=== PATIENT | male | born 1960 | race Caucasian/White ===

== ENCOUNTER 2019-11-28 00:55 | Outpatient (CLI) | payer MEDICAID, SELFPAY ==
--- NOTE | 2019-11-28 | DI.CT_ITS ---
EXAM: CT CHEST WO CLINICAL HISTORY: LUNG MASS, R91.8,PRE BIOPSY,EVALUATE SIZE AND OR RESOLUTION, TECHNIQUE: Imaging Protocol: Axial computed tomography images with coronal and sagittal reformatted images were created and reviewed CONTRAST MATERIAL: Noncontrast COMPARISON: CT CT CHEST W/CONTRAST from 10/09/2019 FINDINGS: Tracheobronchial tree: Patent where visualized. Mediastinum and Angélica: Small mediastinal lymph nodes Pulmonary parenchyma: There has been significant interval increase in size of the previously noted pl eural based mass in the lingula. It now measures 7.5 transverse by 3.2 cm AP by 3.8 cm cephalocaudad . No definite chest wall invasion is seen. Additional pulmonary nodules are seen at the left lower lo be measuring 5 and 7 millimeters in size which appear unchanged. No infiltrates are seen. There is mi ld underlying emphysematous changes. Pleura: No effusion or pneumothorax. Heart: The heart is not dilated. No coronary artery calcifications are seen. Aorta: Thoracic aorta non-dilated. Upper abdomen: Unremarkable. Bones: Normal. IMPRESSION: Interval increase in size of pleural based mass of the lingula. RADIATION DOSE DELIVERED: 382.56mGy.cm Total DLP DATA REPOSITORY: All CT scans at this facility are submitted to the National Radiology Data Registry (NRDR) Dose Index Registry (DIR) with the [employer] (A[employer]). RADIATION OPTIMIZATION: All CT scans at this facility use at least one of these dose optimization te chniques: automated exposure control; mA and/or kV adjustment per patient size (includes targeted exa ms where dose is matched to clinical indication); or iterative reconstruction.
--- NOTE | 2019-11-28 08:30 | DI.NM_ITS ---
EXAM: [place] BONE SCAN INJECTION ONLY CLINICAL HISTORY: BONE PAIN, M89.8X9, LUNG MASS,CHEST WALL PAIN, EVALUTE FOR METS. TECHNIQUE: Injected Dose: 24.5 mCi Tc-99m MDP Delayed Images: No images were obtained. COMPARISON: CT CT CHEST WO from 11/28/2019 FINDINGS: The patient was a injected with radiopharmaceutical but was not able to return for imaging. DATA REPOSITORY:
[2019-11-28 08:58] LABS: Abs Immature Grans 0.01 k/cumm (0.0-0.09); Absolute Basophil Count 0.02 k/cumm (0.0-0.2); Absolute Eosinophil Count 0.21 k/cumm (0.0-0.7); Absolute Lymphocyte Count 1.57 k/cumm (1.2-3.4); Absolute Monocyte Count 0.83 k/cumm (0.11-0.7); Absolute Neutrophil Count 6.61 k/cumm (1.2-6.7); Basophils % 0.2; Eosinophils % 2.3; HCT 39.7 % (40.0-50.0); HGB 13.8 g/dL (13.5-17.5); Immature Grans % 0.1 %; Mean Corp. HGB Concentration 34.8 g/dL (32.0-36.0); Mean Corpuscular Hemoglobin 35.7 pg (27.0-33.0); Mean Corpuscular Volume 102.6 fL (80-95); Mean Platelet Volume 10.6 fL (8.0-11.0); Neutrophils % 71.4; Platelet Count 202 x1000/uL (130-400); RBC 3.87 m/cumm (4.50-6.00); RBC Distribution Width 12.9 % (11.8-14.1); White Blood Cell Count 9.25 k/cumm (4.4-10.8)
[2019-11-28 09:07] LABS: ALT 16 U/L (16-63); AST 16 U/L (15-37); Albumin 3.6 g/dL (3.4-5.0); Alkaline Phosphatase 71 U/L (46-116); Anion Gap 7.3 mmol/L (3-11); BUN 21 mg/dL (7-18); Bilirubin, Total 0.5 mg/dL (0.2-1.0); CO2 27.7 mmol/L (21.0-32.0); CREATININE 1.27 mg/dL (0.70-1.30); Calcium 8.7 mg/dL (8.5-10.1); Chloride 102 mmol/L (98-107); Estimated GFR 57.65 (mL/min/1.73m2); Glucose 105 mg/dL (74-106); Potassium 3.6 mmol/L (3.5-5.1); Sodium 137 mmol/L (136-145); Total Protein 7.5 g/dL (6.4-8.2)
[2019-11-28 09:32] LABS: ESR 23 mm/hr (1-20)
== END 2019-11-28 01:15 ==
PROVIDERS: PCP Nurse Practitioner Family; Visit Provider Internal Medicine
DX: M89.8X8 Other specified disorders of bone, other site (principal); R07.89 Other chest pain; R91.8 Other nonspecific abnormal finding of lung field; R59.0 Localized enlarged lymph nodes
CPT/HCPCS: 71250; 78306; 80053; 80307; 85652; 85025; A9503

== ENCOUNTER 2019-12-07 01:30 | Outpatient (CLI) | payer MEDICAID, SELFPAY ==
--- NOTE | 2019-12-07 10:30 | DI.NM_ITS ---
EXAM: [place] BONE SCAN WHOLE BODY GRP CLINICAL HISTORY: BONE PAIN, M89.8X9, LUNG MASS, CHEST WALL PAIN, EVALUATE FOR METASTATIC. COMPARISON: [facility] BONE SCAN INJ. ONLY from 11/28/2019 EXAMINATION: Whole body bone scan was performed with additional planar scanning of thorax. 23.0 mil licuries of technetium 90 labeled methylene diphosphonate was injected intravenously. There are linearly arrayed foci of increased uptake in left ribs posteriorly consistent prior rib fra ctures. No other significantly increased uptake identified in the region surveyed. There is normal bilateral renal uptake. FINDINGS: No evidence of bony metastatic disease on whole body scanning. IMPRESSION:
[2019-12-07 11:54] LABS: Tricyclic Antidepressants Negative (Negative)
[2019-12-07 12:03] LABS: *AMPHETAMINES SCREEN URINE Negative (Negative); *BARBITURATES SCREEN URINE Negative (Negative); *BENZODIAZEPINES SCREEN URINE Negative (Negative); Cannabinoids THC POSITIVE (Negative); Cocaine Screen,Urine Negative (Negative); METHADONE URINE SCREEN Negative (Negative); OPIATES URINE SCREEN Negative (Negative)
== END 2019-12-07 01:50 ==
PROVIDERS: PCP Internal Medicine; Visit Provider Internal Medicine
DX: M89.8X8 Other specified disorders of bone, other site (principal); R07.89 Other chest pain; R91.8 Other nonspecific abnormal finding of lung field; G89.4 Chronic pain syndrome
CPT/HCPCS: 78306; 80307

== ENCOUNTER 2020-02-08 02:41 | Outpatient (CLI) | payer MEDICAID, SELFPAY ==
[2020-02-08 18:01] LABS: Abs Immature Grans 0.02 10^3/uL (0.0-0.06); Absolute Basophil Count 0.02 10^3/uL (0.0-0.2); Absolute Eosinophil Count 0.11 10^3/uL (0.0-0.7); Absolute Lymphocyte Count 2.05 10^3/uL (1.2-3.4); Absolute Monocyte Count 0.47 10^3/uL (0.1-0.8); Absolute Neutrophil Count 3.26 10^3/uL (1.2-6.7); Basophils % 0.3; Eosinophils % 1.9; HCT 42.2 % (40.0-50.0); HGB 13.7 g/dL (13.5-17.5); Immature Grans % 0.3; Lymphocytes % 34.6; MCH 33.7 pg (27.0-33.0); MCHC 32.5 % (32.0-36.0); MCV 103.7 fL (80-95); MPV 11.6 fL (8.0-11.0); Monocytes % 7.9; Nucleated RBC 0 %; Platelet Count 126 10^3/uL (130-400); RBC 4.07 10^6/uL (4.36-5.78); RDW 12.4 % (11.8-14.1); RDW-SD 47.8 fL; WBC 5.93 10^3/uL (4.4-10.8)
[2020-02-08 19:15] LABS: ESR 8 mm/hr (1-20)
[2020-02-08 19:33] LABS: ALT 31 U/L (16-63); AST 26 U/L (15-37); Albumin 4.1 g/dL (3.4-5.0); Alkaline Phosphatase 65 U/L (46-116); Anion Gap 7.6 mmol/L (3-11); BUN 15 mg/dL (7-18); Bilirubin, Total 0.3 mg/dL (0.2-1.0); CO2 29.4 mmol/L (21.0-32.0); CREATININE 1.29 mg/dL (0.70-1.30); Calcium 9.2 mg/dL (8.5-10.1); Chloride 101 mmol/L (98-107); Estimated GFR 56.62 (mL/min/1.73m2); Glucose 89 mg/dL (74-106); Potassium 4.6 mmol/L (3.5-5.1); Sodium 138 mmol/L (136-145); Total Protein 7.3 g/dL (6.4-8.2)
[2020-02-08 19:55] LABS: *AMPHETAMINES SCREEN URINE Negative (Negative); *BARBITURATES SCREEN URINE Negative (Negative); *BENZODIAZEPINES SCREEN URINE Negative (Negative); Cannabinoids THC Negative (Negative); Cocaine Screen,Urine Negative (Negative); METHADONE URINE SCREEN Negative (Negative); OPIATES URINE SCREEN Negative (Negative)
[2020-02-08 20:39] LABS: Tricyclic Antidepressants Negative (Negative)
== END 2020-02-08 03:01 ==
PROVIDERS: PCP Internal Medicine; Visit Provider Internal Medicine
DX: R91.8 Other nonspecific abnormal finding of lung field (principal); G89.4 Chronic pain syndrome; Z79.899 Other long term (current) drug therapy
CPT/HCPCS: 36415; 80053; 80307; 85652; 85025

== ENCOUNTER 2020-02-18 00:50 | Outpatient (CLI) | payer MEDICAID, SELFPAY ==
--- NOTE | 2020-02-18 | DI.CT_ITS ---
EXAM: CT CHEST WO CLINICAL HISTORY: H/O TITA LUNG LESION,S/P ANTIBIOTICS,EVALUATE FOR CHANGE IN SIZE OR DISEASE, TECHNIQUE: Imaging Protocol: Axial computed tomography images with coronal and sagittal reformatted images were created and reviewed CONTRAST MATERIAL: Noncontrast COMPARISON: CT CT CHEST WO from 11/28/2019 FINDINGS: There has been significant interval decrease in size of a previously noted area masslike consolidatio n in the in the lingula. There is a residual area just above the fissure with air bronchograms. No new abnormalities are identified. The heart size is normal. There are no pleural or pericardial eff usions or evidence of adenopathy. IMPRESSION: Significant interval improvement lingular infiltrate. RADIATION DOSE DELIVERED: 337.64mGy.cm Total DLP DATA REPOSITORY: All CT scans at this facility are submitted to the National Radiology Data Registry (NRDR) Dose Index Registry (DIR) with the [employer] (ACR). RADIATION OPTIMIZATION: All CT scans at this facility use at least one of these dose optimization te chniques: automated exposure control; mA and/or kV adjustment per patient size (includes targeted exa ms where dose is matched to clinical indication); or iterative reconstruction.
== END 2020-02-18 01:10 ==
PROVIDERS: PCP Internal Medicine; Visit Provider Surgery
DX: R91.8 Other nonspecific abnormal finding of lung field (principal)
CPT/HCPCS: 71250

== ENCOUNTER 2020-09-03 04:38 | Outpatient (CLI) | payer MEDICAID, SELFPAY ==
[2020-09-03 16:16] LABS: Abs Immature Grans 0.05 10^3/uL (0.0-0.06); Absolute Basophil Count 0.05 10^3/uL (0.0-0.2); Absolute Eosinophil Count 0.28 10^3/uL (0.0-0.7); Absolute Lymphocyte Count 1.76 10^3/uL (1.2-3.4); Absolute Monocyte Count 0.73 10^3/uL (0.1-0.8); Absolute Neutrophil Count 7.65 10^3/uL (1.2-6.7); Basophils % 0.5; Eosinophils % 2.7; HCT 45.5 % (40.0-50.0); HGB 15.5 g/dL (13.5-17.5); Immature Grans % 0.5; Lymphocytes % 16.7; MCH 35.2 pg (27.0-33.0); MCHC 34.1 % (32.0-36.0); MCV 103.4 fL (80-95); MPV 10.7 fL (8.0-11.0); Monocytes % 6.9; Neutrophils % 72.7; Nucleated RBC 0 %; Platelet Count 163 10^3/uL (130-400); RDW-SD 46.3 fL; WBC 10.52 10^3/uL (4.4-10.8)
[2020-09-03 17:24] LABS: ALT 25 U/L (16-63); AST 15 U/L (15-37); Albumin 4.1 g/dL (3.4-5.0); Alkaline Phosphatase 67 U/L (46-116); Anion Gap 9.7 mmol/L (3-11); BUN 18 mg/dL (7-18); Bilirubin, Total 0.7 mg/dL (0.2-1.0); CO2 25.3 mmol/L (21.0-32.0); CREATININE 1.1 mg/dL (0.70-1.30); Calcium 9.1 mg/dL (8.5-10.1); Calculated LDL 66 mg/dL (<100); Chloride 105 mmol/L (98-107); Cholesterol 131 mg/dL (<200); Folate 15.7 ng/mL (8.6-20.0); Glucose 94 mg/dL (74-106); HDL Cholesterol 52 mg/dL (40-60); Potassium 4.2 mmol/L (3.5-5.1); Sodium 140 mmol/L (136-145); TSH (W/Ref FT4) 0.58 uIU/mL (0.36-3.74); Total Protein 7.2 g/dL (6.4-8.2); Triglyceride 68 mg/dL (<150); Vitamin B12 422 pg/mL (193-986)
[2020-09-04 05:09] LABS: Vitamin D 25 Total 61.3 ng/ml (30-100)
[2020-09-05 09:26] LABS: AFP Tumor Marker 11.9 ng/mL (<8.1)
== END 2020-09-03 04:39 | disposition home or self-care (01) ==
LOC: LBO 04:38
PROVIDERS: PCP Internal Medicine; Visit Provider Internal Medicine
DX: Z00.00 Encounter for general adult medical examination without abnormal findings (principal)
CPT/HCPCS: 36415; 80053; 80061; 82306; 82105; 82607; 82746; 84443; 85025

== ENCOUNTER 2021-02-20 14:40 | Emergency (ER) | payer MEDICAID, SELFPAY ==
[2021-02-20] VITALS (7 sets, daily range): BP systolic 132–153; BP diastolic 75–79; PULSE 52–66; RESP 15–23; TEMP 36.6; O2SAT 95–97
--- NOTE | 2021-02-20 14:30 | RT.EKG_ITS ---
APPROVED REPORT Exam: Resting ECG Reason for Exam: Chest pain Patient Location: E HR:61 bpm ECG Measurements Heart Rate 61 AXIS CO 122 P 21 QRSd 95 QRS 48 QT 417 T 42 QTc 419 Conclusion Sinus rhythm...normal P axis, V-rate 60- 99
--- NOTE | 2021-02-20 15:05 | W.ED.GENAD ---
Discharge Plan Disposition Patient Disposition: AGAINST MEDICAL ADVICE Condition: Stable Discharge Details Clinical Impression: Left against medical advice, Pleuritic chest pain Primary Care Provider: Wendi Morrissey ED Provider: Ml Hager Home Meds and New Rx's Prescriptions: Continued pantoprazole 40 MG tablet,delayed release (DR/EC) 40 mg PO DAILY RF: 0 gabapentin 300 MG capsule 600 mg PO TID RF: 0 clonidine HCl 0.1 mg tablet 0.1 mg PO DAILY RF: 0 dextroamphetamine-amphetamine 12.5 mg tablet 12.5 mg PO BID RF: 0 cholecalciferol (vitamin D3) 125 mcg (5,000 unit) capsule 125 mcg PO DAILY RF: 0 oxycodone 5 mg tablet 5 mg PO QID RF: 0 diclofenac sodium 1 % gel 1 g TOPICAL DAILY RF: 0 Discharge Instructions Instructions: Chest Pain (ED) Additional Instructions: You are leaving the hospital AGAINST MEDICAL ADVICE. The risks of leaving include missed diagnoses, disability or even . It is recommended that you return immediately to the hospital with any worsening or new concerning symptoms. Call your primary care doctor today to schedule a follow-up appointment for reevaluation in the next week. Return immediately to the emergency department if you develop any worsening or new concerning symptoms. Discharge Data Discharge Date/Time-TO BE ENTERED AT DEPARTURE: 02/20/21 15:30 Discharge Physician: Ml Hager Medical Decision Making 60yo M w/ a h/o Hep C, Cirrhosis, Lyme disease, tobacco smoker, chronic pain syndrome on oxycodone presents for right-sided pleuritic chest pain for the past week. EKG notes a rate of 61, sinus, peaked T waves in anterior leads, no STEMI, nondiagnostic. Vitals within normal limits. Patient appears comfortable and nontoxic. He has reproducible right-sided anterior chest pain with palpation and movement. His lungs are clear. As he admits to carrying heavy logs prior to onset of symptoms, suspect most likely musculoskeletal. Considering patient's age and history, also consider PE, ACS. History and presentation does not appear consistent with dissection or pneumonia. Will obtain screening labs, CT chest and give IV Tylenol and Lidoderm patch and reassess. After I discussed my differential diagnosis and plan for work-up, patient stated he only wanted a CT chest to rule out black mold . He refused blood work. After a long discussion regarding the possibility of missed or serious diagnoses including PE, he was then agreeable. When nursing went into room to start the IV, patient slid off the stretcher stating he wanted to leave. The risks of and disability due to a series of missed pathology explained and patient understands. AMA form signed. Medical Records Medical records reviewed: Yes I reviewed the patient's medical records. ECG Data Attestation: I personally reviewed and interpreted this ECG (s) as follows: Interpretation: EKG notes a rate of 61, sinus, peaked T waves in anterior leads. No STEMI. HPI General Mode of arrival: ambulatory. Date/Time Provider Initiated Documentation: 02/20/21 14:50. Limitations to Documentation: no limitations. Information obtained by: patient. HPI Narrative: Patient is a 60-year-old male with a history of hepatitis C, cirrhosis, Lyme disease, chronic smoker, chronic pain syndrome on oxycodone presents with right-sided chest pain for the past week. Patient states the pain is worse with deep breaths and some movement. Patient states he was lifting logs a few days prior to onset of pain but does not recall any specific injury. He denies fever, cough, shortness of breath, nausea, vomiting or abdominal pain. Related Data Home Medications Medication Instructions Recorded Confirmed gabapentin 600 mg PO TID 10/30/12 09/20/14 pantoprazole 40 mg PO DAILY 10/30/12 02/20/21 cholecalciferol (vitamin D3) 125 mcg PO DAILY 02/20/21 02/20/21 clonidine HCl 0.1 mg PO DAILY 02/20/21 02/20/21 dextroamphetamine-amphetamine 12.5 mg PO BID 02/20/21 02/20/21 diclofenac sodium 1 g TOPICAL DAILY 02/20/21 02/20/21 oxycodone 5 mg PO QID 02/20/21 02/20/21 Allergies Allergy/AdvReac Type Severity Reaction Status Date / Time ibuprofen Allergy Wheezing Unverified 02/20/21 14:49 General Stated Complaint: Chest Pain BLANCA: 2 Review of Systems All systems reviewed & are unremarkable except as noted in HPI and below Constitutional Constitutional: Reports as per HPI, Denies chills and Denies fever(s) Eyes Eyes: Denies blurry vision ENT Ears, Nose, Mouth, and Throat: Denies dizziness, Denies sore throat and Denies throat swelling Cardiovascular Cardiovascular: Reports chest pain and Denies dyspnea Respiratory Respiratory: Denies cough and Denies dyspnea Gastrointestinal Gastrointestinal: Denies abdominal pain, Denies diarrhea and Denies vomiting Genitourinary Genitourinary: Denies hematuria and Denies dysuria Musculoskeletal Musculoskeletal: Denies back pain and Denies numbness Integumentary/Breasts Skin/Breast: Denies lesions and Denies rash Neurologic Neurologic: Denies dizziness, Denies localized weakness and Denies numbness Allergic/Immunologic Allergic/Immunologic: Denies throat swelling [facility] Medical History (Updated 02/20/21 @ 16:35 by Ml Hager DO) anomaly skull/facial bones Chronic pain syndrome Cirrhosis of liver Depression Generalized OA GERD (gastroesophageal reflux disease) Hepatitis C Lyme disease Thrombocytopenia Tobacco use disorder Surgical History (Updated 08/29/14 @ 18:31 by Himanshu Rome DO) EGD - MAC Fracture, Closed Treatment Social History Smoking/Tobacco Use Status: Current every day Tobacco Type: cigarettes Smoking risk assessment performed?: Yes Alcohol Intake: former Drug use: Occasionally Substance use type: marijuana Additional Social history: patient states he lives in the [facility] Exam Const General: cooperative, no acute distress and ill appearing chronically Orientation: alert, awake and oriented x3 HENMT Head: normal to inspection Face and sinus: normal facial exam Eyes General: appearance normal, both eyes and all related structures EOM: EOM intact bilaterally Neck Neck: normal visual inspection and No submandibular swelling Lymphatic: no lymphadenopathy noted Chest Chest: normal inspection of the chest Chest/axillae images: 1. Localized area of tenderness. No crepitus. No rash, erythema, lesions, step off. Resp Effort & Inspection: normal respiratory effort and able to speak in complete sentences Auscultation: clear to auscultation bilaterally Cardio Rate: regular rate Rhythm: regular rhythm GI Inspection: normal to inspection Palpation: soft, not firm, not rigid and nontender Auscultation: normal bowel sounds Skin General skin exam: no rashes or lesions noted Neuro General: patient alert, patient awake and patient oriented x3 Cognition: normal cognition Speech: speech normal Motor: muscle tone normal throughout Sensory Exam: no sensory deficits noted Extrem General: normal to inspection, full ROM, capillary refill normal, no calf tenderness bilaterally and no edema Psych Appearance: grossly normal Mental Status: mental status grossly normal Speech and Movement: speech and movement normal Affect: normal affect Course Vital Signs Vital signs: Vital Signs Temperature 97.9 F 02/20/21 14:44 Pulse 64 02/20/21 14:44 Respiratory Rate 16 02/20/21 14:44 Blood Pressure 153/79 H 02/20/21 14:44 Pulse Oximetry 96 02/20/21 14:44 Temperature 97.9 F 02/20/21 14:44 Temperature Source Skin 02/20/21 14:44 Pulse 64 02/20/21 14:44 Respiratory Rate 15 02/20/21 14:54 Respiratory Effort Non-Labored 02/20/21 14:54 Respiratory Depth Normal 02/20/21 14:54 Respiratory Pattern Normal 02/20/21 14:54 Blood Pressure 153/79 H 02/20/21 14:44 Blood Pressure Position Sitting 02/20/21 14:44 Pulse Oximetry 96 02/20/21 14:44 Oxygen Delivery Method Room Air 02/20/21 14:44 Oxygen Flow Rate 0 02/20/21 14:44 Pain Level 7 02/20/21 14:44
--- NOTE | 2021-02-20 18:28 | NUR.NOTE ---
Nursing Note: Referral given to care management for pcp establishment and follow up -libl
== END 2021-02-20 15:30 | disposition left against medical advice (07) ==
PROVIDERS: Emergency Provider Physician Assistant; PCP Internal Medicine
DX: R07.81 Pleurodynia (principal); Z53.29 Procedure and treatment not carried out because of patient's decision for other reasons
CPT/HCPCS: 80053; 93005; 99283; 83735; 84484; 85025; 93010; 99282